=== PATIENT | male | born 1980 | race Caucasian/White ===

== ENCOUNTER → 2020-09-19 09:00 | Outpatient (CLI) | payer BC, SELFPAY ==
--- NOTE | ~2020-09-19 | MR_ITS ---
EXAMINATION: MR lumbar spine wo con DATE: 09/19/2020 09:45 INDICATION: Low back pain. TECHNIQUE: Magnetic resonance imaging (MRI) of the lumbar spine was performed without intravenous con trast. Sequences included sagittal T2-weighted FSE, sagittal T2-weighted FS FSE, sagittal T1-weighted FSE, and axial T2-weighted FSE. COMPARISON: None FINDINGS: Bone alignment is normal. Vertebral body heights are normal. There is mildly decreased disc height at L3-L4 and L4-L5 and moderately decreased disc height at L5-S1. The distal spinal cord sign al intensity is normal. The conus medullaris is at T12. The following disc levels are specifically di scussed: L1-L2: The disc does not extend beyond the endplate margin. There is no facet joint osteoarthritis. T here is no neural foraminal stenosis. There is no central canal stenosis. L2-L3: There is a central extrusion. There is mild bilateral facet joint osteoarthritis. There is no neural foraminal stenosis. There is mild central canal stenosis. L3-L4: The disc is bulging and has an annular fissure. There is mild bilateral facet joint osteoarthr itis. There is mild right neural foraminal stenosis. There is no central canal stenosis. L4-L5: The disc is bulging and has an annular fissure. There is no facet joint osteoarthritis. There is mild right neural foraminal stenosis. There is mild central canal stenosis. L5-S1: The disc is bulging with superimposed left subarticular zone extrusion with 13 mm superior ext ension to the pedicular level and mass effect on left S1 and S2 nerve roots in the left lateral reces s There is mild bilateral facet joint osteoarthritis. There is no neural foraminal stenosis. There is mild central canal stenosis. IMPRESSION: 1. Moderate lower lumbar spondylosis. Of note, an extrusion at L5-S1 exerts mass effect on the left S 1 and S2 nerve roots. Reviewed, dictated and finalized at location A. IMPRESSION: 1. Moderate lower lumbar spondylosis. Of note, an extrusion at L5-S1 exerts mas s effect on the left S1 and S2 nerve roots.
== END ==
PROVIDERS: PCP Family Medicine; Visit Provider Family Medicine
DX: M54.5 Low back pain (principal); M47.816 Spondylosis without myelopathy or radiculopathy, lumbar region
CPT/HCPCS: 72148